=== PATIENT | female | born 1945 | race Caucasian/White ===

== ENCOUNTER → 2017-08-23 | Day surgery (SDC) | payer OTHER ==
[~2017-08-23] VITALS: Ht 149.9 cm; Wt 59.9 kg
[~2017-08-23] MED LIST: AZELASTINE137 MCG/0. NASB; IRBESARTAN-HCT1 EACH PO; LEVOXYL75 MCG PO; LOPRESSOR50 M1 PO; MELATONIN5 M7 PO; NAPROXEN500 M2 PO; NEFAZODONE HCL100 M1 PO; OMEPRAZOLE40 M1 PO; ROPINIROLE HCL1 MG PO; VESICARE5 M1 PO; VITAMIN B-121000 MC3 PO
--- NOTE | 2017-08-23 11:01 | Operative Report ---
Operative/Inv Procedure Report Surgery Date: 08/23/17 Name of Procedure: Cataract extraction with intraocular lens implantation left eye Pre-Operative Diagnosis: Age-related cataract left eye Post-Operative Diagnosis: Same Estimated Blood Loss: none Surgeon/Retail Reset Merchandiser: Greg TOMLIN,Nikolai Cabral Anesthesia: local monitored anesthesi Complications: None Operative/Procedure Note Note: Preoperatively the patient was noted to have 20/40 vision in the left eye with a decrease with glare testing down to 20/60. The risks, benefits, and alternatives to surgery were discussed at length with the patient. Informed consent was obtained. The patient was brought to the operating room where the left eye was prepped and draped in the normal sterile fashion. A speculum was placed on the left eye with good exposure. A stab incision was made using a paracentesis blade. Intracameral lidocaine was placed. Viscoelastic was used to form the anterior chamber. A clear corneal incision was made using keratome blade. A continuous curvilinear capsulorrhexis was made using a cystotome needle followed by Utrata forceps. There was no extension of the rhexis. Hydrodissection was performed using balanced salt solution. The cataract was removed using a stop and chop technique. Residual cortex was removed using coaxial irrigation and aspiration. The capsule was polished using irrigation and aspiration and the posterior capsule was cleaned using a balanced salt solution jet. There was no residual lens material inside the eye. The capsular bag was reformed using viscoelastic. An intraocular lens MX60E of power 32.0 was verified and confirmed. It was loaded into an injector and injected into the eye. The lens was placed entirely within the capsular bag. Viscoelastic was evacuated using irrigation and aspiration. The wounds were stromally hydrated and the eye filled to physiologic pressure using balanced salt solution. Intracameral cefuroxime was placed. Speculum was removed and a shield was placed on the eye. The patient was brought to the recovery area without incident. Instructions were given to follow-up the next day for routine postoperative care.
== END ==
LOC: STS 01:08
DX: H25.9 Unspecified age-related cataract (principal); E11.8 Type 2 diabetes mellitus with unspecified complications; Z79.84 Long term (current) use of oral hypoglycemic drugs; E03.9 Hypothyroidism, unspecified; I10 Essential (primary) hypertension
CPT/HCPCS: J2250; V2632

== ENCOUNTER → 2017-09-20 | Day surgery (SDC) | payer OTHER ==
[~2017-09-20] VITALS: Ht 149.9 cm; Wt 59.9 kg
== END ==
LOC: STS 06:25
DX: H25.9 Unspecified age-related cataract (principal); I10 Essential (primary) hypertension; E03.9 Hypothyroidism, unspecified; E11.9 Type 2 diabetes mellitus without complications; Z79.84 Long term (current) use of oral hypoglycemic drugs
CPT/HCPCS: J2250; V2632